=== PATIENT | female | born 1935 | race Native Hawaiian/Other Pacific Islander ===

== ENCOUNTER 2017-05-13 16:57 | Emergency (ER) | payer MEDICARE ==
--- NOTE | 2017-05-13 19:59 | Emergency Department Report ---
HPI - General Chief Complaint: Fever Time Seen by Provider: 05/13/17 19:29 - HPI HPI: Patient he reported that she is having hot flashes. Denies any cough, chills. Denies any nausea or vomiting. Denies any chest pain, shortness of breath or abdominal pain. Denies any urinary burning, frequency or urgency. Denies any back pain. Pain at present is 0 out of 10. Patient has a history of dementia, diabetes hypertension and she reported that her liver enzymes were elevated at 1 point. She also has high cholesterol. Patient said she is here to be checked because she is having hot flashes that she doesn't know why. Similar incident in the past. She does have a primary care with Dr. Loreta Guadalupe ED Past Medical Hx - Past Medical History Previous Medical History?: Yes Hx Hypertension: Yes (EKG- NSR with prolonged QT, no significant ST or T changes ) Hx Diabetes: Yes Hx Liver Disease: (elevated LFTs, abdominal pain) Hx Asthma: No Hx Dementia: Yes Additional medical history: high cholestrol - Surgical History Past Surgical History?: No - Family History Family history: no significant - Social History Smoking Status: Never Smoker Substance Use Type: None - Medications Home Medications: Home Medications Medication Instructions Recorded Confirmed Last Taken Type Simvastatin [Zocor TAB] 20 mg PO QHS 03/18/14 03/18/14 03/17/14 History metFORMIN [Glucophage] 500 mg PO TID 03/18/14 03/18/14 03/17/14 History Acetaminophen [Acetaminophen TAB] 650 mg PO Q4H PRN #30 tablet 03/27/14 Unknown Rx Pantoprazole [Protonix] 40 mg PO QDAY #30 tablet 03/27/14 Unknown Rx ED Review of Systems ROS: Stated complaint: "BODY FEELS HOT" Other details as noted in HPI Comment: All other systems reviewed and negative Constitutional: no symptoms reported ENT: congestion. denies: ear pain, throat pain Respiratory: no symptoms reported Cardiovascular: denies: chest pain, palpitations, dyspnea on exertion, edema, syncope, paroxysmal nocturnal dyspnea Gastrointestinal: denies: abdominal pain, nausea, vomiting Genitourinary: denies: dysuria, hematuria Musculoskeletal: denies: back pain, arthralgia Skin: denies: rash Neurological: denies: headache, numbness, paresthesias, confusion Physical Exam - Physical Exam Vital Signs: Vital Signs 05/13/17 18:32 Temperature 98.4 F Pulse Rate 53 L Blood Pressure 137/42 O2 Sat by Pulse 98 Oximetry Vital Signs 05/13/17 03 18:32 20:04 Temperature 98.4 F 98.0 F Pulse Rate 53 L 62 Respiratory 14 Rate Blood Pressure 137/42 Blood Pressure 105/57 [Left] O2 Sat by Pulse 98 100 Oximetry General: This is a 81-year-old female well-nourished well-developed nontoxic in appearance. Physical Exam: Head: Normocephalic, atraumatic, no abrasion, no bruising and no contusion. Eyes: Biateral pupils equal and reactive to light, bilateral EOM intact.. Bilateral conjunctival and sclera without injection, normal accommodation. No nystagmus Mouth: Moist, no pharyngeal exudate or erythema. No peritonsillar abscesses. Uvula is midline and oral airways patent. Ears: TMs pearly monge. Bilateral EAC without any redness swelling or drainage. No mastoid bone tenderness Nose: Bilateral nasal mucosa normal. Maxillary and frontal sinuses non-tender to palpate. Neck: Supple, No Cervical adenopathy, full range of motion and no C-spine tenderness. No swelling or tracheal deviation normal reflexes Cardiovascular: S1, S2. Regular rate and rhythm. No murmur. Capillary refill is less then 3 seconds. Lungs: Clear to auscultate bilaterally. No rhonchi, wheezes or rales. No chest wall tenderness. No chest contusion. No bruising to chest. MSK: Strength 5/5 in all extremities. No joint deformity or crepitus. Normal inspection. Full range of motion to all extremities. No laceration, abrasion or ecchymotic area noted. Patient able to fully flex and extend bilateral knees without any difficulties. Bilateral knees nontender to palpate. Abdomen: Non-tender to palpate in all quadrants, no guarding or rebound tenderness, positive bowel sounds in all quadrants. No CVA tenderness. No hernia, bruit or mass. No rigidity or distention. Extremities: No clubbing, cyanosis or edema. +2 pulses. No neurovascular compromise Skin: Clean, dry and intact. No rash or lesions. Neurological: GCS at 15, Pt is alert and oriented 3 speech is clear. Bilateral hand oil well pumper strong and equal. Normal gait. Negative Romberg and no pronator drift. Normal Reflexes. No motor or sensory deficit Back: No vertebral tenderness, no paraspinal tenderness. Ambulates without any difficulties. Psych: Normal mood and behavior ED Course Vital Signs 05/13/17 18:32 Temperature 98.4 F Pulse Rate 53 L Blood Pressure 137/42 O2 Sat by Pulse 98 Oximetry Lab Results 05/13/17 Range/Units 18:47 Lactic Acid 0.70 (0.7-2.0) mmol/L Vital Signs 05/13/17 05/13/17 18:32 20:04 Temperature 98.4 F 98.0 F Pulse Rate 53 L 62 Respiratory 14 Rate Blood Pressure 137/42 Blood Pressure 105/57 [Left] O2 Sat by Pulse 98 100 Oximetry - Reevaluation(s) Reevaluation #1: 05/13/17 20:08 Patient stable throughout ED course. ED Medical Decision Making - Lab Data Lab Results 05/13/17 Range/Units 18:47 Lactic Acid 0.70 (0.7-2.0) mmol/L By mouth POC blood sugar is 105 - Medical Decision Making ED course: Patient reports that she is having thoughts about flashes. 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 Denies any chest pain or shortness of breath. Patient's physical exam is normal. She does have a primary care physician was Dr. Mary Duran which she said is located in [place], [place]. Patient vital signs are stable and she is afebrile. Patient says she just wanted to have her blood pressure checked because she is having hot flashes. She says she feels fine and she is ready to go home. I discussed the patient to call her primary care physician tomorrow to schedule appointment for follow-up visit in 2 days. She was understanding and discharged home with her family. Critical care attestation.: If time is entered above; I have spent that time in minutes in the direct care of this critically ill patient, excluding procedure time. ED Disposition Clinical Impression: Hot flashes Disposition: DC-01 TO HOME OR SELFCARE Is pt being admited?: No Does the pt Need Aspirin: No Condition: Stable Instructions: Normal Exam (ED) Additional Instructions: Please follow up in the primary care physician in 2 days. Call tomorrow to schedule an appointment Make sure you drink plenty of fluids. Referrals: your, primary care physician [Other] - 05/15/17
[2017-05-13 20:05] VITALS: BP 105/57
== END 2017-05-13 20:21 | disposition home or self-care (01) ==
LOC: ED 16:57
DX: N95.1 Menopausal and female climacteric states (principal); I10 Essential (primary) hypertension; E11.9 Type 2 diabetes mellitus without complications; E78.00 Pure hypercholesterolemia, unspecified; F03.90 Unspecified dementia, unspecified severity, without behavioral disturbance, psychotic disturbance, mood disturbance, and anxiety; Z88.7 Allergy status to serum and vaccine
CPT/HCPCS: 36415; 82140; 82962; 99283